=== PATIENT | female | born 1985 | race Caucasian/White ===

== ENCOUNTER 2017-03-26 09:55 | Emergency (ER) | payer SELFPAY ==
[~2017-03-26] VITALS: Ht 162.6 cm; Wt 70.0 kg
[~2017-03-26 09:55] MED LIST: BACTRIM DS1 TAB PO; CEPHALEXIN500 MG PO; IBUPROFEN600 MG PO; LORTAB 10-325 M1 TAB PO; LORTAB 5/3255 MG PO; PRE-NATAL PO
[2017-03-26 10:52] LABS: HEMATOCRIT 38.3 % (37.0-47.0); HEMOGLOBIN 12.4 g/dl (12.0-16.0); IMMATURE GRANULOCYTES 0.3 % (0.0-1.0); MEAN CELL VOLUME 82.4 fL CALC (80.0-100.0); MEAN CORPUSCULAR HGB 26.7 pG CALC (26.0-32.0); MEAN CORPUSCULAR HGB CONC 32.4 g/L CALC (32.0-36.0); NEUT# 3.56 thou/uL (2.00-7.15); RED BLOOD COUNT 4.65 mill/uL (4.20-5.60); RED CELL DISTRI WIDTH 16.7 % (11.5-15.5)
[2017-03-26 10:58] LABS: URINE BILIRUBIN - DIPSTICK NEGATIVE (NEGATIVE); URINE BLOOD DIPSTICK NEGATIVE (NEGATIVE); URINE COLOR YELLOW; URINE GLUCOSE - DIPSTICK NEGATIVE (NEGATIVE); URINE KETONE NEGATIVE (NEGATIVE); URINE NITRITE - DIPSTICK NEGATIVE (Negative); URINE PROTEIN - DIPSTICK NEGATIVE (NEG-TRACE); URINE SPECIFIC GRAVITY 1.015; URINE UROBILINOGEN - DIPSTICK 0.2 E.U./dL (0.2)
[2017-03-26 11:00] LABS: ALBUMIN 3.9 g/dL (3.2-5.0); ALKALINE PHOSPHATASE 89 u/l (38-126); ANION GAP 15 (6-22 (CALC)); BILIRUBIN, TOTAL 0.5 mg/dL (0.0-1.4); BUN 9 mg/dL (7-17); BUN/CREATININE RATIO 14 (12-20 (CALC)); CALCIUM 9.8 mg/dL (8.4-10.2); CARBON DIOXIDE 24 mmol/l (22-30); CHLORIDE 104 mmol/l (95-108); CREATININE 0.7 mg/dL (0.5-1.0); GFR > 60 ML/MIN (>=60 (CALC)); GFR FOR AFR.AMER. > 60 ML/MIN (>=60 (CALC)); GLUCOSE 100 mg/dL (65-105); LIPASE 17 u/l (23-300); POTASSIUM 4.1 mmol/l (3.5-5.1); SGOT/AST 20 u/l (14-36); SGPT/ALT 21 u/l (9-52); SODIUM 139 mmol/l (137-146); TOTAL PROTEIN 7.3 g/dL (6.3-8.2)
[2017-03-26 11:03] LABS: URINE CLARITY CLOUDY; URINE LEUK ESTERASE MODERATE (NEGATIVE)
[2017-03-26 11:32] LABS: URINE BACTERIA FEW hpf; URINE SQUAMOUS EPITHELIAL CELL FEW EPI/hpf (0-FEW); URINE WBC 20-50 WBC/hpf (0-5)
[2017-03-26 12:48] VITALS: BP 127/90
== END 2017-03-26 12:48 | disposition left against medical advice (07) | DRG 204 ==
LOC: ED 09:55
PROVIDERS: Family Medicine
DX: R07.81 Pleurodynia (principal); J90 Pleural effusion, not elsewhere classified; J98.4 Other disorders of lung; R10.11 Right upper quadrant pain; R11.0 Nausea

== ENCOUNTER 2017-03-27 06:15 | Emergency (ER) | payer SELFPAY ==
[~2017-03-27] VITALS: Ht 162.6 cm; Wt 68.0 kg
[2017-03-27 07:34] LABS: HEMATOCRIT 36.5 % (37.0-47.0); HEMOGLOBIN 11.4 g/dl (12.0-16.0); IMMATURE GRANULOCYTES 0.4 % (0.0-1.0); MEAN CELL VOLUME 83.7 fL CALC (80.0-100.0); MEAN CORPUSCULAR HGB 26.1 pG CALC (26.0-32.0); MEAN CORPUSCULAR HGB CONC 31.2 g/L CALC (32.0-36.0); NEUT# 5.09 thou/uL (2.00-7.15); RED BLOOD COUNT 4.36 mill/uL (4.20-5.60); RED CELL DISTRI WIDTH 16.5 % (11.5-15.5)
[2017-03-27 07:48] LABS: ALBUMIN 4.1 g/dL (3.2-5.0); ALKALINE PHOSPHATASE 106 u/l (38-126); AMYLASE 48 u/l (30-110); ANION GAP 16 (6-22 (CALC)); BILIRUBIN, TOTAL 0.3 mg/dL (0.0-1.4); BUN 15 mg/dL (7-17); BUN/CREATININE RATIO 18 (12-20 (CALC)); CALCIUM 9.8 mg/dL (8.4-10.2); CARBON DIOXIDE 24 mmol/l (22-30); CHLORIDE 105 mmol/l (95-108); CREATININE 0.8 mg/dL (0.5-1.0); GFR > 60 ML/MIN (>=60 (CALC)); GFR FOR AFR.AMER. > 60 ML/MIN (>=60 (CALC)); GLUCOSE 93 mg/dL (65-105); LIPASE 35 u/l (23-300); POTASSIUM 4.5 mmol/l (3.5-5.1); SGOT/AST 19 u/l (14-36); SGPT/ALT 23 u/l (9-52); SODIUM 141 mmol/l (137-146); TOTAL PROTEIN 7.5 g/dL (6.3-8.2)
[2017-03-27 09:06] LABS: INFLUENZA A NONE DETECTED (NONE DETECT); INFLUENZA B NONE DETECTED (NONE DETECT)
[2017-03-27 12:50] VITALS: BP 100/61
== END 2017-03-27 12:50 | disposition home or self-care (01) | DRG 194 ==
LOC: ED 06:15
PROVIDERS: Emergency Medicine; Family Medicine
DX: J18.9 Pneumonia, unspecified organism (principal); J90 Pleural effusion, not elsewhere classified; F17.210 Nicotine dependence, cigarettes, uncomplicated; R10.11 Right upper quadrant pain; R06.02 Shortness of breath; R05 Cough
CPT/HCPCS: Q9967

== ENCOUNTER 2017-03-30 07:12 | Inpatient (IN) | payer SELFPAY ==
[~2017-03-30] VITALS: Ht 152.4 cm; Wt 64.4 kg
--- NOTE | 2017-03-30 07:32 | NUR ---
PATIENT AMBULATED TO ROOM WITH STEADY GAIT AND PHYSICIAN AT BEDSIDE FOR EVALUATION
[2017-03-30] MEDS ORDERED: Levaquin PO (07:41)
--- NOTE | 2017-03-30 08:23 | NUR ---
PT TO RADIOLOGY VIA STRETCHER IN NO APPARENT DISTRESS FOR IV PLACEMENT.
--- NOTE | 2017-03-30 08:54 | NUR ---
CALLED TO RADIOLOGY PT WAS TEARFUL AND AGITATED. IM ATIVAN 2 MG AND TORADOL 60 MG INDIVIDUAL SHOTS PROVIDED ORDERED TO LEFT BUTTOCKS. PT TOLERATED WELL. AGREEABLE TO PROCEDURE BUT STATES WAS ANXIOUS. PT CALMER AT THIS TIME.
--- NOTE | 2017-03-30 09:50 | NUR ---
PT RETURNED FROM RADIOLOGY VIA STRETCHER. IV SITE TO [facility]. NO APPARENT DISTRESS. APPREARS COMFORTABLE.
--- NOTE | 2017-03-30 10:23 | NUR ---
LABS OBTAINED FROM PIC TO [facility]. BRISK RETURN. SITE HEALTHY. PT SLEEPING AND AWAKENS W/VERBAL STIMULI. REPORTS FEELING RELAXED.
[2017-03-30 10:29] LABS: HEMATOCRIT 32.6 % (37.0-47.0); HEMOGLOBIN 10.3 g/dl (12.0-16.0); IMMATURE GRANULOCYTES 0.1 % (0.0-1.0); MEAN CORPUSCULAR HGB 26.2 pG CALC (26.0-32.0); MEAN CORPUSCULAR HGB CONC 31.6 g/L CALC (32.0-36.0); NEUT# 4.15 thou/uL (2.00-7.15); RED BLOOD COUNT 3.93 mill/uL (4.20-5.60); RED CELL DISTRI WIDTH 15.8 % (11.5-15.5)
[2017-03-30 10:47] LABS: ALBUMIN 3.7 g/dL (3.2-5.0); ALKALINE PHOSPHATASE 97 u/l (38-126); ANION GAP 15 (6-22 (CALC)); BILIRUBIN, TOTAL 0.3 mg/dL (0.0-1.4); BUN 12 mg/dL (7-17); BUN/CREATININE RATIO 18 (12-20 (CALC)); CALCIUM 9.4 mg/dL (8.4-10.2); CARBON DIOXIDE 24 mmol/l (22-30); CHLORIDE 103 mmol/l (95-108); CREATININE 0.7 mg/dL (0.5-1.0); GFR > 60 ML/MIN (>=60 (CALC)); GFR FOR AFR.AMER. > 60 ML/MIN (>=60 (CALC)); GLUCOSE 111 mg/dL (65-105); LIPASE 21 u/l (23-300); POTASSIUM 4.2 mmol/l (3.5-5.1); SGOT/AST 24 u/l (14-36); SGPT/ALT 29 u/l (9-52); SODIUM 137 mmol/l (137-146); TOTAL PROTEIN 7.1 g/dL (6.3-8.2)
--- NOTE | 2017-03-30 11:12 | NUR ---
ANTIBIOTICS STARTED. PATIENT RESTING QUIETLY. FLUIDS INFUSING VIA PUMP.
--- NOTE | 2017-03-30 11:23 | NUR ---
PT ASSISTED TO BSC. 300ML DARK YELLOW URINE PROVIDED SPECIMEN COLLECTED.
[2017-03-30 11:29] LABS: URINE BILIRUBIN - DIPSTICK NEGATIVE (NEGATIVE); URINE BLOOD DIPSTICK NEGATIVE (NEGATIVE); URINE COLOR YELLOW; URINE GLUCOSE - DIPSTICK NEGATIVE (NEGATIVE); URINE KETONE NEGATIVE (NEGATIVE); URINE LEUK ESTERASE NEGATIVE (NEGATIVE); URINE NITRITE - DIPSTICK NEGATIVE (Negative); URINE PROTEIN - DIPSTICK NEGATIVE (NEG-TRACE); URINE SPECIFIC GRAVITY 1.025; URINE UROBILINOGEN - DIPSTICK 0.2 E.U./dL (0.2)
[2017-03-30 11:31] LABS: COCAINE POSITIVE (NEGATIVE); TETRAHYDROCANNABIONOL POSITIVE (NEGATIVE); URINE CLARITY CLEAR
[2017-03-30 11:32] LABS: BARBITURATES NEGATIVE (NEGATIVE); METHADONE NEGATIVE (NEGATIVE); OXCYCODONE POSITIVE (NEGATIVE); TRICYLIC ANTIDEPRESSANTS NEGATIVE (NEGATIVE)
--- NOTE | 2017-03-30 12:31 | NUR ---
MD AT BEDSIDE DISCUSSING CLINICAL RESULTS W/PT
--- NOTE | 2017-03-30 12:56 | NUR ---
SBAR PRINTED TO FLOOR
--- NOTE | 2017-03-30 13:28 | NUR ---
DR HERRERA AT BEDSIDE EVALUATING PT.
--- NOTE | 2017-03-30 14:00 | NUR ---
REPORT CALLED TO KATYA BLAKE, ON [facility].
[2017-03-30 14:28] VITALS: BP 108/70
--- NOTE | 2017-03-30 14:32 | NUR ---
PT TO [facility] VIA STRETCHER. IV SITE HEALTHY. NO APPARENT DISTRESS. ALL BELONGINGS SENT W/PT.
--- NOTE | 2017-03-30 14:40 | NUR ---
PT.ARRIVED TO FLOOR VIA STRETCHER ACCOMPANIED BY ED NURSE. PT.APPEARS TO BE IN STABLE CONDITION AT THIS TIME AND IS BEING ORIENTED TO ROOM, CALL SYSTEM, LIGHTS AND TV. V/S ARE BEING ASSESSED. WILL FOLLOW-UP WITH ASSESSMENT AND ADMISSION QUESTIONS.
--- NOTE | 2017-03-30 15:25 | NUR ---
PT HAS HER BACK TURNED TO THE DOOR. NO DISTRESS NOTED., CONTINUE TO OBSERVE AND MONITOR.
[2017-03-30 17:17] VITALS: BP 110/68
--- NOTE | 2017-03-30 17:27 | NUR ---
PT IS RESTING HER PHONE WAS RINGING AND PT DID NOT ATTEMPT TO ANSWER. MOVING A LITTLE IN THE BED, CONTINUE TO OSBERVE AND MONITOR.
[2017-03-30 18:00] VITALS: BP 119/73
--- NOTE | 2017-03-30 18:04 | NUR ---
PT WAS RESTING , WHEN PLANISHER CAME IN TO COMPLETE ECHO ALL OF A SUDDEN IS C/O PAIN.WILL BE EXPLAINED THAT SHE CAN GET SOMETHING AFTER THE TEST.
--- NOTE | 2017-03-30 19:27 | NUR ---
PATIENT RESTING IN BED-JUST FINISHING ECHO AT BEDSIDE. PATIENT C/O RIGHT SIDED CHEST PAIN-6/10 ON PAIN SCALE. MEDICATED WITH LORTAB 5/325MG PO FOR PAIN. PATIENT DENIES COUGH OR SPUTUM. SAFETY PRECAUTIONS REINFORCED. CALL LIGHT IN REACH. WILL CONT TO MONITOR.
--- NOTE | 2017-03-30 21:30 | NUR ---
PATIENT RESTING IN BED AT THIS TIME WITH VISITOR AT BEDSIDE. PETER HUNG ORDERED VIA LEFT UPPER ARM PICC. SITE APPEARS HEALTHY WITH GOOD BLOOD RETURN. PATIENT ASKING TO GO OUTSIDE TO SMOKE-PATIENT TOLD THAT SHE IS NOT ABLE TO LEAVE THE FLOOR AT THIS TIME. PATIENT STATES THAT SHE IS JUST GOING TO LEAVE THEN THAT SHE CAN'T STAY. PATIENT EDUCATED REGUARDING NEED FOR PROPER TREATMENT OF PNEUMONIA PATIENT HAS HAD MULTIPLE TRIPS TO THE ER IN THE LAST FEW DAYS. LOVENOX GIVEN ORDERED. SAFETY PRECAUTIONS REINFORCED. CALL LIGHT IN REACH. WILL CONT TO MONITOR.
--- NOTE | 2017-03-30 23:31 | NUR ---
IV VANCO FINISHED AND PICC LINE FLUSHED PER PROTOCOL. VISITOR REMAINS AT BEDSIDE. PATIENT IS CALMER AT THIS TIME TAKING PO FLUIDS AND ASKING FOR ICE CHIPS. SAFETY PRECAUTIONS REINFORCED. CALL LIGHT IN REACH. WILL CONT TO MONITOR.
[2017-03-31 00:42] VITALS: BP 112/61
--- NOTE | 2017-03-31 00:57 | NUR ---
RESPONDED TO CALL LIGHT AND FOUND THE PATIENT IN BED WITH LARGE AMT OF BLOOD ON PATIENT GOWN AND LINED-PICC LINE INTACT BUT ADAPTOR LOOSE AND CLAMP OPENED-ADAPTOR WAS TIGHTENED AND AND CLAMP CLOSED. PICC LINE WAS FLUSHED. GOWN AND LINENS WERE CHANGED. PATIENT WAS INSTRUCTED TO LEAVE THE ADAPTOR AND CLAMPS ALONE. VERBALIZED UNDERSTANDING. SAFETY PRECAUTIONS REINFORCED. VISITOR RESTING ON COUCH IN THE ROOM. CALL LIGHT IN REACH. WILL CONT TO MONITOR.
--- NOTE | 2017-03-31 05:15 | NUR ---
PATIENT RESTING IN BED-C/O RIGHT SIDED CHEST PAIN-7/10 ON PAIN SCALE. MEDICATED WITH LORTAB 5/325MG PO ORDERED. BLOOD DRAWN FROM LEFT UPPER ARM PICC WITHOUT DIFFICULTY FOR AM LABS. FLUSHED WITH SALINE AND HEP KEVIN PER PROTOCOL. CALL LIGHT IN REACH. WILL CONT TO MONITOR.
[2017-03-31 05:17] VITALS: BP 111/69
[2017-03-31 06:02] LABS: HEMATOCRIT 33.3 % (37.0-47.0); HEMOGLOBIN 10.7 g/dl (12.0-16.0); IMMATURE GRANULOCYTES 0.3 % (0.0-1.0); MEAN CELL VOLUME 82.8 fL CALC (80.0-100.0); MEAN CORPUSCULAR HGB 26.6 pG CALC (26.0-32.0); MEAN CORPUSCULAR HGB CONC 32.1 g/L CALC (32.0-36.0); NEUT# 3.89 thou/uL (2.00-7.15); RED BLOOD COUNT 4.02 mill/uL (4.20-5.60); RED CELL DISTRI WIDTH 15.8 % (11.5-15.5)
[2017-03-31 06:15] LABS: ANION GAP 13 (6-22 (CALC)); BUN 11 mg/dL (7-17); BUN/CREATININE RATIO 18 (12-20 (CALC)); CALCIUM 9.3 mg/dL (8.4-10.2); CARBON DIOXIDE 24 mmol/l (22-30); CHLORIDE 105 mmol/l (95-108); CREATININE 0.6 mg/dL (0.5-1.0); GFR > 60 ML/MIN (>=60 (CALC)); GFR FOR AFR.AMER. > 60 ML/MIN (>=60 (CALC)); GLUCOSE 125 mg/dL (65-105); MAGNESIUM 1.9 mg/dL (1.6-2.3); POTASSIUM 4.4 mmol/l (3.5-5.1); SODIUM 138 mmol/l (137-146)
--- NOTE | 2017-03-31 07:08 | NUR ---
REPORT RECEIVED FROM KATYA PEGUERO. PT SITTING UPRIGHT IN BED. REPORTS MODERATE RIGHT RIB PAIN, EXACERBATED BY FREQUENT COUGHING. ALSO REPORTS COUGH IN NOW PRODUCTIVE, PT HAS NOT VISUALIZED SPUTUM. PAIN MEDICATIONS AND SCHEDULES REVIEWED. PLAN OF CARE DISCUSSED. SCHEDULE OF ABX REVIEWED. CALL LIGHT REVIEWED AND IN REACH. PT STATES UNDERSTANDING.
[2017-03-31 07:14] VITALS: BP 114/61
--- NOTE | 2017-03-31 07:34 | NUR ---
PT MEDIDCATED WITH TORADOL IV FOR PAIN. PT EDUCATED ON ORDERED PAIN MEDICATIONS, INDICATIONS, MECHANISM OF ACTION AND SIDE EFFECTS. IS PROVIDED. PT INSTRUCTED ON USE AND INDICATION. 500 ML INCENTIVE VOLUME ACHIEVED. GOAL SET FOR 2000ML. PT STATES UNDERSTANDING.
--- NOTE | 2017-03-31 08:23 | NUR ---
S: ARLET HERNANDEZ is a 31 F who presents with pneumonia. She has a history of prior recent pneumonia, recreational drug use, smokes half a pack a day. All medications in patient's chart were reviewed. O: VS: BP 114/61, P 78, RR 16,T 99.2 (F) W 64.4 kg, HT 5ft 0in, Scr= 0.6,CrCl= 139 ml/min A: Blood culture is pending. P: Patient is on Ceftriaxone 1 gm q24h IV and Azithromycin 500 mg q24 IV. Vancomycin ordered for pharmacy to dose. Start Vancomycin 1250 mg IV Q12H. Vancomycin trough is drawn before the 4th dose on 04/01/17 at 0930. Vancomycin goal trough is between 15-20 mcg/ml. Pharmacy will follow and or advise on antibiotics use as needed.
--- NOTE | 2017-03-31 10:00 | NUR ---
PT'S FATHER IN ROOM. SCREATMING HEARD FROM OUTSIDE THE ROOM. PT'S FATHER CAME OUT, STATES " WELL I GOT KICKED OUT." JUICES SPILLED ALL OVER FLOOR. MESS CLEANED UP. PT STATES "IM FINE." WILL CONTINUE TO MONITOR.
[2017-03-31] MEDS ORDERED: AUGMENTIN875TAB PO (12:24)
[2017-03-31] MEDS ORDERED: ZITHROMAX500 MG PO (12:24)
--- NOTE | 2017-03-31 13:25 | NUR ---
PT REQUESTS TO KEEP PICC LINE FOR SHOWER. PT INFORMED LINE WILL BE REMOVED WHEN VANCO FINISHED AND PRIOR TO SHOWER. PT ARGUMENATIVE. STATES "I ALREADY HAVE THE COVER TO COVER IT. I JUST WANT TO GET IN THE SHOWER NOW." PT INFORMED PICC LINE WILL BE REMOVED.
--- NOTE | 2017-03-31 13:31 | NUR ---
[facility] PICC LINE REMOVED, 40 CM IN LENGTH. PRESSURE HELD AND DRESSING APPLIED PER POLICY.
--- NOTE | 2017-03-31 13:48 | NUR ---
PT LEFT FLOOR AMBULATORY BY SELF. STABLE AT THIS TIME. UPON STRIPPING ROOM FOR CLEANING, SHARPS BOX FOUND TO BE BROKEN, WITH CONTENTS EXPOSED. YOVANY ONTIVEROS RN NOTIFIED. PILLS FOUND IN BED, SENT TO PHARMACY.
== END 2017-03-31 13:48 | disposition home or self-care (01) | DRG 195 ==
LOC: ED 07:12 → ED-I 12:27 → ED 13:18 → MS2 13:19
PROVIDERS: Emergency Medicine; Nurse Practitioner Family; ADMIT Internal Medicine; ATTEND Internal Medicine
PROC: 02HV33Z Insertion of Infusion Device into Superior Vena Cava, Percutaneous Approach (ICD-10-PCS; principal; 2017-03-30)
DX: J18.9 Pneumonia, unspecified organism (principal); F12.10 Cannabis abuse, uncomplicated; F17.210 Nicotine dependence, cigarettes, uncomplicated; F14.10 Cocaine abuse, uncomplicated; F15.10 Other stimulant abuse, uncomplicated
CPT/HCPCS: J1650; J2060; J3370; Q9967